=== PATIENT | female | born 1945 | race Caucasian/White ===

== ENCOUNTER → 2016-09-06 | Outpatient (CLI) | payer MEDICARE ==
--- NOTE | 2016-09-06 18:28 | PN ---
DATE OF SERVICE: 09/06/2016 This is a 71-year-old lady who has been followed in the sleep center for treatment of obstructive sleep apnea/hypopnea syndrome. Recently she had a polysomnogram and CPAP titration done, and I discussed results of the tests with her in detail. Patient at present is using her CPAP equipment with ( ) regimen of pressure between 5 and 20. Patient demonstrated good compliance with treatment 100% of the time. She is using the machine more than 4 hours per night. According to her, she sleeps better with the machine, has fewer awakenings from sleep, feels better during the day. Last night she woke up because she felt the pressure was too much for her; according to her, it was in the range of 14 to 15 cm of water. I checked the reading from the machine. It showed that 95th percentile of the pressure is 10.1 cm of water. Maximum pressure was 11.4 cm of water. With this regimen, apnea-hypopnea index for the last month was 4.1. Maximum leak was up to 27.7; 95th percentile is 18.6, which is in acceptable range. [place] Sleepiness Scale today is 3. MEDICATIONS: 1. Synthroid. 2. Clopidogrel. 3. Vitamin D. 4. Atorvastatin. 5. Sertraline. During physical exam, patient is in no distress. VITAL SIGNS: BP 134/65, HR 106, RR 16. Weight 225. Temperature 98.0. Oxygen saturations at room air 96%. HEENT: PERRLA, EOMI. Evaluation of oropharynx showed extremely low position of soft palate. NECK: Supple. No JVD. Thyroid is not palpable. LUNGS: Clear to percussion and to auscultation. Good air exchange. No wheezing or rhonchi. HEART: S1, S2 regular. No murmurs, gallops or rubs. ABDOMEN: Obese. EXTREMITIES: No clubbing or cyanosis. STRUCTURAL DESIGN ENGINEER: Awake, alert, and oriented x3. Cranial nerves 2 to 7 intact. There is no fasciculation or atrophy noted. No focal deficits observed. IMPRESSION: 1. Moderate obstructive sleep apnea/hypopnea syndrome. Apnea-hypopnea index 16.1 with oxygen desaturation to 88%, practically controlled with AutoPap. Patient demonstrated 100% compliance with treatment, benefitting from treatment. 2. Obesity. 3. Hyperlipidemia. 4. Hypothyroidism. 5. Depression. 6. Status post left ankle surgery. PLAN: 1. Continue treatment with CPAP every night. 2. Losing weight. 3. I adjusted regimen of ( ) pressure up to maximal pressure of 12. Thank you very much for allowing me to participate in the management your patient. Sincerely, Mickey Zaman MD, PhD, FAASM. Diplomat of [place] [employer], Sleep Medicine Board by [place] [employer], [place] [employer]
== END | disposition home or self-care (01) ==
LOC: SLEEP 14:13
PROVIDERS: ATTEND Internal Medicine
DX: G47.33 Obstructive sleep apnea (adult) (pediatric) (principal); Z79.899 Other long term (current) drug therapy; E66.9 Obesity, unspecified; E78.5 Hyperlipidemia, unspecified; E03.9 Hypothyroidism, unspecified; F32.9 Major depressive disorder, single episode, unspecified; Z98.890 Other specified postprocedural states

== ENCOUNTER → 2016-10-23 | Outpatient (CLI) | payer MEDICARE ==
[2016-10-23 13:47] LABS: Basophils % (A) 1 %; CH 30.9; CHCM 33.5; Eosinophils # (A) 0.2 k/uL (0-0.7); Eosinophils % (A) 4 %; HCT 38.3 % (34.0-46.0); HDW 2.65; HGB 12.8 gm/dL (11.4-16.0); Luc # (Auto) 0.11; Luc % (Auto) 2; Lymphocytes # (A) 1.6 k/uL (1.0-4.8); Lymphocytes % (A) 29 %; MCH 30.8 pg (25.0-35.0); MCHC 33.3 g/dL (31.0-37.0); MCV 92.5 fL (80.0-100.0); Mean Platelet Volume 6.7; Monocytes # (A) 0.2 k/uL (0-1.0); Monocytes % (A) 4 %; Neutrophils # (A) 3.2 k/uL (1.3-7.7); Neutrophils % (A) 59 %; RBC 4.14 m/uL (3.80-5.40); RDW 13.7 % (11.5-15.5); WBC 5.4 k/uL (3.8-10.6); WBC (Perox) 5.72
[2016-10-23 13:53] LABS: ALT 30 U/L (9-52); AST 25 U/L (14-36); Alkaline Phosphatase 61 U/L (38-126); Anion Gap 11 mmol/L; Blood Urea Nitrogen 19 mg/dL (7-17); Calcium 9.1 mg/dL (8.4-10.2); Carbon Dioxide 25 mmol/L (22-30); Chloride 107 mmol/L (98-107); Cholesterol 141 mg/dL (<200); Glucose 96 mg/dL (74-99); HDL Cholesterol 59 mg/dL (40-60); Non-African American GFR(MDRD) >60 (>60 ml/min/1.73 sqM); Potassium 4.5 mmol/L (3.5-5.1); Sodium 143 mmol/L (137-145); Total Bilirubin 0.8 mg/dL (0.2-1.3); Triglycerides 119 mg/dL (<150)
[2016-10-23 15:46] LABS: Hepatitis C Virus IgG Index 0.02
[2016-10-23 15:55] LABS: Hepatitis C Virus IgG Ab Negative (Negative)
== END | disposition home or self-care (01) ==
LOC: LABWHC1 12:22
PROVIDERS: ATTEND Family Medicine
DX: E03.9 Hypothyroidism, unspecified (principal); E78.5 Hyperlipidemia, unspecified; Z20.9 Contact with and (suspected) exposure to unspecified communicable disease
CPT/HCPCS: 36415; 80053; 80061; 84439; 84443; 84481; 85025; 86803

== ENCOUNTER → 2017-08-22 | Outpatient (CLI) | payer MEDICARE ==
--- NOTE | 2017-08-22 16:44 | PN ---
PROGRESS NOTE DATE OF SERVICE: 08/22/2017 72-year-old lady has been followed in Sleep Center for treatment of obstructive sleep apnea-hypopnea syndrome. The patient successfully continued to use her CPAP equipment every night for the whole night without significant problems related to the mask, pressure, humidification. [place] Sleepiness Scale today is 4. I checked CPAP unit. Pressure is 9 cm of water. Usage is 100% of the time more than 4 hours. Average usage is 6.4 hours. Leak 28 L/minutes which is borderline. Apnea-hypopnea index is 3.6, which is in normal range. MEDICATIONS: Synthroid, clopidogrel, Atorvastatin, Sertraline, aspirin, vitamin D3, cetirizine. PHYSICAL EXAM: Patient in no distress. BP 120/76, HR 93, RR 14, height 5 feet 2 inches, weight 227.8. The weight is up about 2.7 pounds, temp 99.3, oxygen saturation on room air 97%. Oropharynx extremely low position of soft palate. ABDOMEN: Obese. Extremities minimal 1+ ankle edema. Neck Supple, no JVD. Thyroid is not palpable. LUNGS Clear to percussion and to auscultation. Good air exchange. No wheezing or rhonchi. HEART: S1, S2 regular. No murmurs, gallops, or rubs. ABDOMEN: Obese. Soft and nontender. Bowel sounds are present. No organomegaly appreciated. [place]AIA[place] KURA TUARUA Awake, alert, and oriented X3. Cranial nerves 2 to 7 intact. There is no fasciculation or atrophy. noted. No focal deficits observed. IMPRESSION: 1. Obstructive sleep apnea-hypopnea syndrome. The patient demonstrated 100% compliance with treatment benefitting from treatment. 2. Obesity. 3. Hyperlipidemia. 4. Hypothyroidism. 5. History of depression. 6. Status post left ankle surgery. PLAN: 1. Patient will continue to use her CPAP equipment every night. 2. Prescription for all necessary CPAP supplies including mask, tube, filters. 3. Losing weight. 4. Sleep hygiene with regular time in bed for at least 8 hours. 5. No driving if feeling sleepiness. 6. Followup visit in 1 year earlier if patient has any problems. Thank you very much for allowing me to participate in management of your patient. Sincerely, Mickey Zaman MD, PhD, FAASM Diplomat of [place] [employer] [place] [employer] Leather Coater of [facility] [place] MMMARINA / NATHALY: [id number] /
== END | disposition home or self-care (01) ==
LOC: SLEEP 14:24
PROVIDERS: ATTEND Internal Medicine
DX: G47.33 Obstructive sleep apnea (adult) (pediatric) (principal); E66.9 Obesity, unspecified; E78.5 Hyperlipidemia, unspecified; E03.9 Hypothyroidism, unspecified; F32.9 Major depressive disorder, single episode, unspecified; Z99.89 Dependence on other enabling machines and devices; Z79.82 Long term (current) use of aspirin; Z79.899 Other long term (current) drug therapy; Z79.02 Long term (current) use of antithrombotics/antiplatelets; Z98.890 Other specified postprocedural states

== ENCOUNTER → 2018-10-09 | Outpatient (CLI) | payer MEDICARE ==
--- NOTE | 2018-10-09 16:43 | PN ---
PROGRESS NOTE DATE OF SERVICE: 10/09/2018 This patient is a 73-year-old lady who has been followed in Sleep Center for follow-up treatment of obstructive sleep apnea-hypopnea syndrome. The patient is successfully continuing to use her CPAP equipment every night for the whole night without significant problems related to mask fitting, pressure or humidification. No snoring with the machine. [place] Sleepiness Scale is 3, which is totally normal. I checked her CPAP unit. Usage is 100% of nights for more than 4 hours; average usage 7.0 hours. Pressure is 10.2 cm of water. Leak is 20 L/minute, which is borderline. The patient is using an AirFit P10 nasal pillow mask. Apnea-hypopnea index for the last month is 5.1, and this is about the same range for the last 6 months. MEDICATIONS: 1. Synthroid. 2. Clopidogrel. 3. Atorvastatin. 4. Sertraline. 5. Aspirin. 6. Vitamin D3. 7. Cetirizine. PHYSICAL EXAMINATION: GENERAL: A pleasant patient in no distress. VITAL SIGNS: BP 156/63, HR 91, RR 16, height 5 feet 1-1/4 inches, weight 233.2 pounds, which is 6 pounds more than during her previous visit. Temperature 98.1. Oxygen saturation at room air 95%. HEENT: PERRLA, EOMI. Evaluation of oropharynx showed tongue protrudes midline. Extremely low position of soft palate. NECK: Supple. No JVD. Thyroid is not palpable. LUNGS: Clear to percussion and to auscultation. Good air exchange. No wheezing or rhonchi. HEART: S1, S2 regular. No murmurs, gallops or rubs. ABDOMEN: Slightly obese. EXTREMITIES: No clubbing or cyanosis. GERMAN TUTOR: Awake, alert, and oriented X3. Cranial nerves 2 to 7 intact. There is no fasciculation or atrophy. noted. No focal deficits observed. IMPRESSION: 1. Obstructive sleep apnea-hypopnea syndrome. Patient demonstrated 100% compliance with treatment, benefitting from treatment. 2. Obesity. Weight is up by about 6 pounds compared to her previous visit. 3. Hypothyroidism. 4. Hyperlipidemia. 5. History of depression. 6. Status post left ankle surgery. PLAN: 1. Patient will continue to use CPAP equipment every night for the whole night with the same regimen as it is now, range of the pressure of 5 to 12 cm of water. 2. Losing weight. 3. Sleep hygiene with regular time in bed for at least 8 hours. 4. No driving if feeling any sleepiness. 5. We will maintain prescriptions for all necessary CPAP supplies, including mask, heated tube, filters. 6. Follow-up visit in one year or earlier if patient has any problems. Thank you very much for allowing me to participate in the management of your patient. Sincerely, Mickey Zaman MD, PhD, FAASM Diplomat of [place] [employer] [place] [employer] Event Services Manager of [facility] [place] MMODL / IJN: [id number] /
== END | disposition home or self-care (01) ==
LOC: SLEEP 15:13
PROVIDERS: ATTEND Internal Medicine
DX: G47.33 Obstructive sleep apnea (adult) (pediatric) (principal); E66.9 Obesity, unspecified; E78.5 Hyperlipidemia, unspecified; E03.9 Hypothyroidism, unspecified; F32.9 Major depressive disorder, single episode, unspecified; Z99.89 Dependence on other enabling machines and devices; Z79.02 Long term (current) use of antithrombotics/antiplatelets; Z79.82 Long term (current) use of aspirin; Z79.899 Other long term (current) drug therapy; Z98.890 Other specified postprocedural states

== ENCOUNTER → 2019-02-12 | Outpatient (CLI) | payer MEDICARE ==
--- NOTE | 2019-02-12 15:07 | BD ---
EXAMINATION TYPE: Axial Bone Density DATE OF EXAM: 02/12/2019 COMPARISON: 06.05.2005 CLINICAL HISTORY: 74 YR OLD FEMALE.....ICD-10 CODE: Z78.0 ASYMPTOMATIC MENOPAUSE Height: 61 Weight: 225 FRAX RISK QUESTIONS: NOTHING ADDITIONAL TO NOTE HERE RISK FACTORS HISTORY OF: ANKLE IN PAST UNDER 52 YRS OLD ONLY Diet low in dairy products/other sources of calcium: YES Postmenopausal woman: YES, AT AGE 50 Take estrogen and/or progesterone medications: IN THE PAST FOR 5 YRS Lost more than 2 inches in height since high school: YES MEDICATIONS: Prednisone or other steroids: INHALER FOR ALLERGY ONLY Thyroid Medications: YES, SYNTHROID FOR ABOUT 48 YRS Additional Medications: PLAVIX, VIT D, STATIN FOR CHOLESTEROL, ZOLOFT, AMBIEN PRN, REFLUX MEDS PRN, A SPIRIN, Additional History: 2 SMALL STROKES, EXAM MEASUREMENTS: Bone mineral densitometry was performed using the [employer] System. Bone mineral density as measured about the Lumbar spine is: ----- L1-L4(G/cm2): 1.533 T Score Values are as follows: ----- L1: 2.0 ----- L2: 5.6 ----- L3: 4.4 ----- L4: 0.6 ----- L1-L4: 2.9 Bone mineral density has: Increased 22.1% since study of: 06.05.2005 Bone mineral density about the R hip (g/cm2): 1.017 Bone mineral density about the L hip (g/cm2): 1.058 T Score values are as follows: -----R Neck: -0.2 -----L Neck: 1.2 -----R Total: 0.1 -----L Total: 0.4 Bone mineral density has: Decreased -3.8% since study of: 06.05.2005 FRAX%s: THERE IS A 6.7% CHANCE FOR A MAJOR OSTEOPOROTIC FX AND A 0.4% FOR HIP.....PROBABILITY FOR FX IN 10 YRS TIME IMPRESSION: Normal (Values between +1 and -1 indicate normal bone mass). Consider repeating this study in 5 year s or sooner if there is some new clinical indication. NOTE: T-SCORE=SD OF THE YOUNG ADULT MEAN.
--- NOTE | 2019-02-13 09:12 | MM ---
Reason for exam: screening (asymptomatic). Last mammogram was performed 5 years and 2 months ago. History: Patient is postmenopausal. Took estrogen for 5 years. Took progesterone for 5 years. Physical Findings: A clinical breast exam by your physician is recommended on an annual basis and results should be correlated with mammographic findings. MG 3D Screening Mammo W/Cad Bilateral CC and MLO view(s) were taken. Prior study comparison: December 24, 2013, bilateral MG screening mammo w CAD. June 02, 2009, bilateral digital screening mammogram. There are scattered fibroglandular densities. There is no discrete abnormality. No significant changes when compared with prior studies. ASSESSMENT: Negative, BI-RAD 1 RECOMMENDATION: Routine screening mammogram of both breasts in 1 year.
== END | disposition home or self-care (01) ==
LOC: RADMAMWWP 13:41
PROVIDERS: ATTEND Family Medicine
DX: Z12.31 Encounter for screening mammogram for malignant neoplasm of breast (principal); Z78.0 Asymptomatic menopausal state
CPT/HCPCS: 77063; 77067; 77080

== ENCOUNTER → 2020-06-03 | Outpatient (CLI) | payer MEDICARE | END | disposition home or self-care (01) | LOC: LABWHC1 13:07 | PROVIDERS: ATTEND Nurse Practitioner Family | DX: Z03.89 Encounter for observation for other suspected diseases and conditions ruled out (principal) | CPT/HCPCS: U0003; C9803 ==

== ENCOUNTER → 2021-04-05 | Outpatient (CLI) | payer MEDICARE ==
--- NOTE | 2021-04-05 15:45 | BD ---
EXAMINATION TYPE: Axial Bone Density DATE OF EXAM: 04/05/2021 COMPARISON: NONE CLINICAL HISTORY: Height: 5 FT 1 1/2 IN Weight: 225 FRAX RISK QUESTIONS: Alcohol (3 or more units per day): NO Family History (Parent hip fracture): NO Glucocorticoids (More than 3mos): NO (Ex: prednisone, prednisolone, methylprednisolone, dexamethasone, and hydrocortisone). History of Fracture in Adulthood: YES Secondary Osteoporosis: 1. Type 1 Diabetes: NO 2. Hyperthyroidism: NO 3. Menopause before 45: NO 4. Malnutrition: NO 5. Chronic liver disease: NO Rheumatoid Arthritis: NO Current Tobacco Use: NO RISK FACTORS HISTORY OF: Surgery to Spine/Hip(right/left)/Wrist (right/left): NO Family History of Osteoporosis: NO Active: NO Diet low in dairy products/other sources of calcium: NO Postmenopausal woman: AGE 50 Take estrogen and/or progesterone medications: TOOK HRT FOR 5 YEARS NO LONGER TAKES Lost more than 2 inches in height since high school: YES MEDICATIONS: Thyroid Medications: YES Which medication: SYNTHROID How Long: SINCE APPROX AGE 32 Additional Medications: SYNTHROID,ZOLOFT NEEDED, Additional History: EXAM MEASUREMENTS: Bone mineral densitometry was performed using the [employer] System. Bone mineral density as measured about the Lumbar spine is: ----- L1-L4(G/cm2): 1.428 T Score Values are as follows: ----- L2: 2.8 ----- L3: 3.6 ----- L4: 0.0 ----- L1-L4: 2.1 Bone mineral density has: DECREASED -8.3 % since study of: 2018 Bone mineral density about the R hip (g/cm2): 1.047 Bone mineral density about the L hip (g/cm2): 0.907 T Score values are as follows: -----R Neck: 0.1 -----L Neck: -0.9 -----R Total: 0.1 -----L Total: -0.4 Bone mineral density has: DECREASED -4.8 % since study of: 2018 IMPRESSION: Normal (Values between +1 and -1 indicate normal bone mass). Consider repeating this study in 5 year s or sooner if there is some new clinical indication. NOTE: T-SCORE=SD OF THE YOUNG ADULT MEAN.
--- NOTE | 2021-04-07 11:05 | MM ---
Reason for exam: screening (asymptomatic). Last mammogram was performed 2 years and 2 months ago. History: Patient is postmenopausal. Took estrogen for 5 years. Took progesterone for 5 years. Physical Findings: A clinical breast exam by your physician is recommended on an annual basis and results should be correlated with mammographic findings. MG Screening Mammo w CAD Bilateral CC and MLO view(s) were taken. CV view(s) were taken of the left breast. Prior study comparison: February 12, 2019, bilateral MG 3d screening mammo w/cad. December 24, 2013, bilateral MG screening mammo w CAD. The breast tissue is almost entirely fat. There is chronic nodularity in the left breast. No significant changes when compared with prior studies. ASSESSMENT: Negative, BI-RAD 1 RECOMMENDATION: Routine screening mammogram of both breasts in 1 year.
== END | disposition home or self-care (01) ==
LOC: RADMAMWWP 13:00
PROVIDERS: ATTEND Family Medicine
DX: Z12.31 Encounter for screening mammogram for malignant neoplasm of breast (principal); Z78.0 Asymptomatic menopausal state
CPT/HCPCS: 77067; 77080

== ENCOUNTER 2023-07-19 17:05 | Inpatient (IN) | payer MEDICARE ==
[2023-07-19] MEDS ORDERED: ACETAMINOPHEN TAB 500 MG TAB PO STA (17:30)
[2023-07-19] MEDS ORDERED: IBUPROFEN 800 MG TAB PO STA (17:30)
[2023-07-19] MEDS ORDERED: SODIUM CHLORIDE 0.9% 1,000 ML IV STA ×2 (17:30→21:22)
--- NOTE | 2023-07-19 17:30 | ED ---
Fever HPI - General Chief Complaint: Fall Stated Complaint: Fall Source: patient, EMS, RN notes reviewed, old records reviewed Mode of arrival: EMS Limitations: no limitations - History of Present Illness Initial Comments: This is a 78-year-old female to the ER today. Patient comes in for evaluation of fall patient believes she got severely weak last night was unable to complete an activity as she had a letter self the ground, or weakness persistent where she was unable to get up last night and family came looking for what they were unable to get ahold of her today. Patient has been feeling sick for a few days getting worse and notes to have fever on arrival to the emergency department MD Complaint: fever, malaise, weakness, other ( had a fall in late on her ground for 24 hours) -: days(s) Temperature Source: subjective Associated Symptoms: denies other symptoms Treatments Prior to Arrival: none - Related Data Home Medications Medication Instructions Recorded Confirmed Multivitamin [Multivitamins Adult 1 tab PO DAILY 07/19/23 07/19/23 Gummies] Previous Rx's Medication Instructions Recorded Acetaminophen Tab [Tylenol] 325 mg PO Q6HR PRN tab 07/24/23 Ascorbic Acid [Vitamin C] 1,000 mg PO DAILY #60 tab 07/24/23 Cholecalciferol [Vitamin D3 (25 50 mcg PO DAILY #30 tab 07/24/23 Mcg = 1000 Iu)] Levothyroxine Sodium [Synthroid] 100 mcg PO DAILY@0630 tab 07/24/23 Zinc Sulfate [Orazinc] 220 mg PO DAILY #30 cap 07/24/23 Allergies Allergy/AdvReac Type Severity Reaction Status Date / Time banana Allergy Swelling Verified 07/19/23 20:13 latex Allergy Rash/Hives Verified 07/19/23 20:13 Penicillins Allergy Rash/Hives Verified 07/19/23 20:13 tree nut Allergy Swelling Verified 07/19/23 20:13 Review of Systems ROS Statement: Those systems with pertinent positive or pertinent negative responses have been documented in the HPI. ROS Other: All systems not noted in ROS Statement are negative. Past Medical History Past Medical History: GERD/Reflux, Hyperlipidemia, Thyroid Disorder Additional Past Medical History / Comment(s): IBS, heart murmur History of Any Multi-Drug Resistant Organisms: None Reported Past Surgical History: Orthopedic Surgery Additional Past Surgical History / Comment(s): L and R cataract removal, Left ankle ORIF Past Anesthesia/Blood Transfusion Reactions: Motion Sickness Past Psychological History: No Psychological Hx Reported Smoking Status: Never smoker Past Alcohol Use History: Rare Past Drug Use History: None Reported - Past Family History Father Family Medical History: CVA/TIA Mother Family Medical History: Cancer, CVA/TIA Additional Family Medical History / Comment(s): colon cancer. General Exam General appearance: alert, in no apparent distress, anxious, lethargic Head exam: Present: atraumatic, normocephalic, normal inspection Eye exam: Present: normal appearance, PERRL, EOMI. Absent: scleral icterus, conjunctival injection, periorbital swelling ENT exam: Present: normal exam, mucous membranes dry, mucous membranes moist Neck exam: Present: normal inspection. Absent: tenderness, meningismus, lymphadenopathy Respiratory exam: Present: normal lung sounds bilaterally. Absent: respiratory distress, wheezes, rales, rhonchi, stridor Cardiovascular Exam: Present: normal rhythm, tachycardia, normal heart sounds. Absent: systolic murmur, diastolic murmur, rubs, gallop, clicks GI/Abdominal exam: Present: soft, normal bowel sounds. Absent: distended, tenderness, guarding, rebound, rigid Extremities exam: Present: normal inspection, full ROM, normal capillary refill. Absent: tenderness, pedal edema, joint swelling, calf tenderness Back exam: Present: normal inspection Neurological exam: Present: alert, oriented X3, CN II-XII intact Psychiatric exam: Present: normal affect, normal mood Skin exam: Present: warm, dry, intact, normal color. Absent: rash Course Vital Signs 07/19/23 07/19/23 07/19/23 17:07 18:48 21:01 Temperature 100.6 F H 100.8 F H 99.4 F Pulse Rate 110 H 99 97 Pulse Rate [ Left] Respiratory 18 18 18 Rate Blood Pressure 128/68 107/50 116/58 Blood Pressure [Left Arm] O2 Sat by Pulse 97 97 94 L Oximetry 07/20/23 07/20/23 07/20/23 02:00 04:00 05:00 Temperature Pulse Rate 58 L 76 87 Pulse Rate [ Left] Respiratory 16 17 19 Rate Blood Pressure 98/47 102/49 107/57 Blood Pressure [Left Arm] O2 Sat by Pulse 94 L 94 L 95 Oximetry 07/20/23 07/20/23 07/20/23 07:30 11:50 16:28 Temperature 98.9 F 100.5 F H 98.5 F Pulse Rate 95 100 91 Pulse Rate [ Left] Respiratory 18 20 18 Rate Blood Pressure 116/51 119/77 94/41 Blood Pressure [Left Arm] O2 Sat by Pulse 95 95 98 Oximetry 07/20/23 07/20/23 18:13 18:45 Temperature 99.1 F 99.9 F H Pulse Rate 92 Pulse Rate [ 69 Left] Respiratory 18 18 Rate Blood Pressure 91/62 Blood Pressure 104/66 [Left Arm] O2 Sat by Pulse 97 95 Oximetry - Reevaluation(s) Reevaluation #1: medical record is reviewed Reevaluation #2: patient has no improvement in symptoms Reevaluation #3: patient is informed of symptoms and questions answered Reevaluation #4: Was pt. sent in by a medical professional or institution (, PA, CASE BRIEFER, urgent care, hospital, or senior care...) When possible be specific @ -no Did you speak to anyone other than the patient for history (EMS, parent, family, police, friend...)? What history was obtained from this source @ -no Did you review nursing and triage notes (agree or disagree)? Why? @ -agree Are old charts reviewed (outside hosp., previous admission, EMS record, old EKG, old radiological studies, urgent care reports/EKG's, senior care records)? Report findings @ -yes Differential Diagnosis (chest pain, altered mental status, abdominal pain women, abdominal pain men, vaginal bleeding, weakness, fever, dyspnea, syncope, headache, dizziness, GI bleed, back pain, seizure, CVA, palpatations, mental health, musculoskeletal)? @ -prior EKG interpreted by me (3pts min.). @ -yes X-rays interpreted by me (1pt min.). @ -yes negative for acute disaease CT interpreted by me (1pt min.). @ -no U/S interpreted by me (1pt. min.). @ -no What testing was considered but not performed or refused? (CT, X-rays, U/S, labs)? Why? @ -none What meds were considered but not given or refused? Why? @ -none Did you discuss the management of the patient with other professionals (professionals i.e. , PA, CASE BRIEFER, lab, RT, psych nurse, social sciences professor, quarter folder, teacher, restoration officer, piano case and bench assembler)? Give summary @ -no Was smoking cessation discussed for >3mins.? @ -no Was critical care preformed (if so, how long)? @ -no Were there social determinants of health that impacted care today? How? (Homelessness, low income, unemployed, alcoholism, drug addiction, transportation, low edu. Level, literacy, decrease access to med. care, [place] [facility], rehab)? @ -none Was there de-escalation of care discussed even if they declined (Discuss DNR or withdrawal of care, Hospice)? DNR status @ -no What co-morbidities impacted this encounter? (DM, HTN, Smoking, COPD, CAD, Cancer, CVA, ARF, Chemo, Hep., AIDS, mental health diagnosis, sleep apnea, morbid obesity)? @ -none Was patient admitted / discharged? Hospital course, mention meds given and route, prescriptions, significant lab abnormalities, going to OR and other pertinent info. @ - 78 female to the emergency department was severe weakness laid on the floor all night, does have expected rhabdomyolysis CK greater than 25,000, patient will admit for resuscitation and hydration monitoring of bilateral nose and further investigation into cause of debility. Patient is no acute fracture from fall Admitted Undiagnosed new problem with uncertain prognosis? @ -no Drug Therapy requiring intensive monitoring for toxicity (Heparin, Nitro, Insulin, Cardizem)? @ -no Were any procedures done? @ -no Diagnosis/symptom? @ -Fever,Weak,Rhabdomyolysis,COVID Acute, or Chronic, or Acute on Chronic? @ -Acute Uncomplicated (without systemic symptoms) or Complicated (systemic symptoms)? @ -Complicated Side effects of treatment? @ -no Exacerbation, Progression, or Severe Exacerbation? @ -exacerbation Poses a threat to life or bodily function? How? (Chest pain, [place], [place], pneumonia, PE, COPD, DKA, ARF, appy, cholecystitis, CVA, Diverticulitis, Homicidal, Suicidal, threat to staff... and all critical care pts) @ -yes extremes of age Reevaluation #5: Differential Fever: Pneumonia, viral URI, endocarditis, myocarditis, pericarditis, otitis, sinusit is, peritonsillar Abscess, retropharyngeal Abscess, epiglottitis, peritonitis, appendicitis, Gladis cystitis, diverticulitis, hepatitis, colitis, UTI, PID, TOA, pyelonephritis, prostatitis, epididymitis, meningitis, encephalitis, pulmonary embolism, CVA, thyroid storm, pancreatitis, adrenal crisis, cavernous sinus thrombosis, this is not meant to be an all-inclusive list. - Consultations Consultation #1: spoke w admitting who agrees to admit these patients Medical Decision Making - Medical Decision Making 78 female to the emergency department was severe weakness laid on the floor all night, does have expected rhabdomyolysis CK greater than 25,000, patient will admit for resuscitation and hydration monitoring of bilateral nose and further investigation into cause of debility. Patient is no acute fracture from fall - Lab Data Result diagrams: 07/22/23 03:45 07/24/23 03:38 Lab Results 07/19/23 07/19/23 07/19/23 Range/Units 17:51 17:51 17:51 WBC 8.2 (3.8-10.6) k/uL RBC 4.31 (3.80-5.40) m/uL Hgb 13.9 (11.4-16.0) gm/dL Hct 40.9 (34.0-46.0) % MCV 94.8 (80.0-100.0) fL MCH 32.2 (25.0-35.0) pg MCHC 33.9 (31.0-37.0) g/dL RDW 12.7 (11.5-15.5) % Plt Count 241 (150-450) k/uL MPV 7.2 Neutrophils % 85 % Lymphocytes % 9 % Monocytes % 4 % Eosinophils % 0 % Basophils % 1 % Neutrophils # 7.0 (1.3-7.7) k/uL Lymphocytes # 0.7 L (1.0-4.8) k/uL Monocytes # 0.3 (0-1.0) k/uL Eosinophils # 0.0 (0-0.7) k/uL Basophils # 0.0 (0-0.2) k/uL PT 12.4 (10.0-12.5) sec INR 1.2 H (<1.2) APTT 23.8 (22.0-30.0) sec Sodium (137-145) mmol/L Potassium (3.5-5.1) mmol/L Chloride (98-107) mmol/L Carbon Dioxide (22-30) mmol/L Anion Gap mmol/L BUN (7-17) mg/dL Creatinine (0.52-1.04) mg/dL Est GFR (CKD-EPI)AfAm (>60 ml/min/1.73 sqM) Est GFR (CKD-EPI)NonAf (>60 ml/min/1.73 sqM) Glucose (74-99) mg/dL Plasma Lactic Acid Tam (0.7-2.0) mmol/L Calcium (8.4-10.2) mg/dL Phosphorus (2.5-4.5) mg/dL Magnesium (1.6-2.3) mg/dL Total Bilirubin (0.2-1.3) mg/dL AST (14-36) U/L ALT (4-34) U/L Alkaline Phosphatase (38-126) U/L Creatine Kinase (30-135) U/L Troponin I (0.000-0.034) ng/mL NT-Pro-B Natriuret Pep pg/mL Total Protein (6.3-8.2) g/dL Albumin (3.5-5.0) g/dL Urine Color Light Red Urine Appearance Turbid H (Clear) Urine pH 5.5 (5.0-8.0) Ur Specific [place] 1.028 (1.001-1.035) Urine Protein 2+ H (Negative) Urine Glucose (UA) Negative (Negative) Urine Ketones 1+ H (Negative) Urine Blood Large H (Negative) Urine Nitrite Negative (Negative) Urine Bilirubin Negative (Negative) Urine Urobilinogen <2.0 (<2.0) mg/dL Ur Leukocyte Esterase Negative (Negative) Urine RBC 2 (0-5) /hpf Urine WBC 2 (0-5) /hpf Ur Squamous Epith Cells 2 (0-4) /hpf Amorphous Sediment Few H (None) /hpf Urine Mucus Moderate H (None) /hpf Influenza Type A (PCR) (Not Detectd) Influenza Type B (PCR) (Not Detectd) RSV (PCR) (Not Detectd) SARS-CoV-2 (PCR) (Not Detectd) 07/19/23 07/19/23 07/19/23 Range/Units 17:51 17:51 18:56 WBC (3.8-10.6) k/uL RBC (3.80-5.40) m/uL Hgb (11.4-16.0) gm/dL Hct (34.0-46.0) % MCV (80.0-100.0) fL MCH (25.0-35.0) pg MCHC (31.0-37.0) g/dL RDW (11.5-15.5) % Plt Count (150-450) k/uL MPV Neutrophils % % Lymphocytes % % Monocytes % % Eosinophils % % Basophils % % Neutrophils # (1.3-7.7) k/uL Lymphocytes # (1.0-4.8) k/uL Monocytes # (0-1.0) k/uL Eosinophils # (0-0.7) k/uL Basophils # (0-0.2) k/uL PT (10.0-12.5) sec INR (<1.2) APTT (22.0-30.0) sec Sodium 136 L (137-145) mmol/L Potassium 3.9 (3.5-5.1) mmol/L Chloride 103 (98-107) mmol/L Carbon Dioxide 23 (22-30) mmol/L Anion Gap 10 mmol/L BUN 25 H (7-17) mg/dL Creatinine 0.73 (0.52-1.04) mg/dL Est GFR (CKD-EPI)AfAm >90 (>60 ml/min/1.73 sqM) Est GFR (CKD-EPI)NonAf 81 (>60 ml/min/1.73 sqM) Glucose 111 H (74-99) mg/dL Plasma Lactic Acid Tam 1.4 (0.7-2.0) mmol/L Calcium 8.5 (8.4-10.2) mg/dL Phosphorus 3.6 (2.5-4.5) mg/dL Magnesium 1.9 (1.6-2.3) mg/dL Total Bilirubin 1.0 (0.2-1.3) mg/dL AST 375 H (14-36) U/L ALT 102 H (4-34) U/L Alkaline Phosphatase 56 (38-126) U/L Creatine Kinase 23204 H* (30-135) U/L Troponin I 0.035 H* (0.000-0.034) ng/mL NT-Pro-B Natriuret Pep 681 pg/mL Total Protein 6.1 L (6.3-8.2) g/dL Albumin 3.4 L (3.5-5.0) g/dL Urine Color Urine Appearance (Clear) Urine pH (5.0-8.0) Ur Specific [place] (1.001-1.035) Urine Protein (Negative) Urine Glucose (UA) (Negative) Urine Ketones (Negative) Urine Blood (Negative) Urine Nitrite (Negative) Urine Bilirubin (Negative) Urine Urobilinogen (<2.0) mg/dL Ur Leukocyte Esterase (Negative) Urine RBC (0-5) /hpf Urine WBC (0-5) /hpf Ur Squamous Epith Cells (0-4) /hpf Amorphous Sediment (None) /hpf Urine Mucus (None) /hpf Influenza Type A (PCR) (Not Detectd) Influenza Type B (PCR) (Not Detectd) RSV (PCR) (Not Detectd) SARS-CoV-2 (PCR) (Not Detectd) 07/19/23 Range/Units 21:17 WBC (3.8-10.6) k/uL RBC (3.80-5.40) m/uL Hgb (11.4-16.0) gm/dL Hct (34.0-46.0) % MCV (80.0-100.0) fL MCH (25.0-35.0) pg MCHC (31.0-37.0) g/dL RDW (11.5-15.5) % Plt Count (150-450) k/uL MPV Neutrophils % % Lymphocytes % % Monocytes % % Eosinophils % % Basophils % % Neutrophils # (1.3-7.7) k/uL Lymphocytes # (1.0-4.8) k/uL Monocytes # (0-1.0) k/uL Eosinophils # (0-0.7) k/uL Basophils # (0-0.2) k/uL PT (10.0-12.5) sec INR (<1.2) APTT (22.0-30.0) sec Sodium (137-145) mmol/L Potassium (3.5-5.1) mmol/L Chloride (98-107) mmol/L Carbon Dioxide (22-30) mmol/L Anion Gap mmol/L BUN (7-17) mg/dL Creatinine (0.52-1.04) mg/dL Est GFR (CKD-EPI)AfAm (>60 ml/min/1.73 sqM) Est GFR (CKD-EPI)NonAf (>60 ml/min/1.73 sqM) Glucose (74-99) mg/dL Plasma Lactic Acid Tam (0.7-2.0) mmol/L Calcium (8.4-10.2) mg/dL Phosphorus (2.5-4.5) mg/dL Magnesium (1.6-2.3) mg/dL Total Bilirubin (0.2-1.3) mg/dL AST (14-36) U/L ALT (4-34) U/L Alkaline Phosphatase (38-126) U/L Creatine Kinase (30-135) U/L Troponin I (0.000-0.034) ng/mL NT-Pro-B Natriuret Pep pg/mL Total Protein (6.3-8.2) g/dL Albumin (3.5-5.0) g/dL Urine Color Urine Appearance (Clear) Urine pH (5.0-8.0) Ur Specific [place] (1.001-1.035) Urine Protein (Negative) Urine Glucose (UA) (Negative) Urine Ketones (Negative) Urine Blood (Negative) Urine Nitrite (Negative) Urine Bilirubin (Negative) Urine Urobilinogen (<2.0) mg/dL Ur Leukocyte Esterase (Negative) Urine RBC (0-5) /hpf Urine WBC (0-5) /hpf Ur Squamous Epith Cells (0-4) /hpf Amorphous Sediment (None) /hpf Urine Mucus (None) /hpf Influenza Type A (PCR) Not Detected (Not Detectd) Influenza Type B (PCR) Not Detected (Not Detectd) RSV (PCR) Not Detected (Not Detectd) SARS-CoV-2 (PCR) Detected A (Not Detectd) - Radiology Data Radiology results: report reviewed (Chest x-ray pelvis negative for traumatic injury), image reviewed Disposition Clinical Impression: Fall, Weakness, Rhabdomyolysis, Fever, Coronavirus infection, Pre-syncope Disposition: ADMITTED IP TO THIS [facility] Condition: Serious Is patient prescribed a controlled substance at d/c from ED?: No Time of Disposition: 21:30
[2023-07-19 18:27] LABS: Basophils % (A) 1 %; Eosinophils % (A) 0 %; HCT 40.9 % (34.0-46.0); HGB 13.9 gm/dL (11.4-16.0); Lymphocytes # (A) 0.7 k/uL (1.0-4.8); Lymphocytes % (A) 9 %; MCH 32.2 pg (25.0-35.0); MCHC 33.9 g/dL (31.0-37.0); MCV 94.8 fL (80.0-100.0); Mean Platelet Volume 7.2; Monocytes # (A) 0.3 k/uL (0-1.0); Monocytes % (A) 4 %; Neutrophils % (A) 85 %; Platelet Count 241 k/uL (150-450); RBC 4.31 m/uL (3.80-5.40); RDW 12.7 % (11.5-15.5); WBC 8.2 k/uL (3.8-10.6)
[2023-07-19 18:43] LABS: INR 1.2 (<1.2); Partial Thromboplastin Time 23.8 sec (22.0-30.0); Prothrombin Time 12.4 sec (10.0-12.5)
[2023-07-19 19:14] LABS: Amorphous Sediment,Urine Few /hpf; Appearance,Urine Turbid (Clear); Bilirubin,Urine Negative (Negative); Blood,Urine Large (Negative); Color,Urine Light Red; Glucose,Urine (UA) Negative (Negative); Ketones,Urine 1+ (Negative); Leukocyte Esterase,Urine Negative (Negative); Mucus,Urine Moderate /hpf; Nitrite,Urine Negative (Negative); PH, Urine 5.5 (5.0-8.0); Protein,Urine 2+ (Negative); RBC,Urine 2 /hpf (0-5); Specific Gravity,Urine 1.028 (1.001-1.035); Squamous Epithelial Cell,Urine 2 /hpf (0-4); Urobilinogen,Urine <2.0 mg/dL (<2.0); WBC,Urine 2 /hpf (0-5)
[2023-07-19 19:23] LABS: ALT 102 U/L (4-34); AST 375 U/L (14-36); African American GFR (CKD) >90 (>60 ml/min/1.73 sqM); Albumin 3.4 g/dL (3.5-5.0); Alkaline Phosphatase 56 U/L (38-126); Anion Gap 10 mmol/L; Blood Urea Nitrogen 25 mg/dL (7-17); Calcium 8.5 mg/dL (8.4-10.2); Carbon Dioxide 23 mmol/L (22-30); Chloride 103 mmol/L (98-107); Glucose 111 mg/dL (74-99); Magnesium 1.9 mg/dL (1.6-2.3); Non-African American GFR(CKD) 81 (>60 ml/min/1.73 sqM); Phosphorus 3.6 mg/dL (2.5-4.5); Potassium 3.9 mmol/L (3.5-5.1); Sodium 136 mmol/L (137-145); Total Protein 6.1 g/dL (6.3-8.2)
--- NOTE | 2023-07-19 19:30 | XR ---
EXAMINATION TYPE: XR chest 1V DATE OF EXAM: 07/19/2023 7:12 PM CLINICAL INDICATION:Female, 78 years old with history of fall; COMPARISON: Chest radiographs from 11/25/2014 TECHNIQUE: XR chest 1V Frontal view of the chest. FINDINGS: Lungs/Pleura: There is no evidence of pleural effusion, focal consolidation, or pneumothorax. Pulmonary vascularity: Unremarkable. Heart/mediastinum: Cardiomediastinal silhouette is unremarkable. Musculoskeletal: No acute osseous pathology. IMPRESSION: No acute cardiopulmonary disease/process.
--- NOTE | 2023-07-19 19:30 | XR ---
EXAMINATION TYPE: XR pelvis AP view DATE OF EXAM: 07/19/2023 7:12 PM CLINICAL INDICATION:Female, 78 years old with history of fall; COMPARISON: None TECHNIQUE: The pelvis was examined in a single projection. FINDINGS: There is no evidence of fracture or dislocation. There is no soft tissue abnormality. No a bnormal calcifications are present. The spine appears intact. The hips appear intact. No significant degeneration. Severe degeneration changes with osteophyte formation and joint space tearing. IMPRESSION: 1. No acute osseous pathology. 2. Severe bilateral hip osteoarthrosis.
[2023-07-19 19:32] LABS: NT-Pro-B-Type Natriuretic Pept 681 pg/mL
[2023-07-19 20:49] LABS: Creatine Kinase 24936 U/L (30-135)
[2023-07-19] MEDS ORDERED: SODIUM CHLORIDE 0.9% 500 ML 500 ML IV STA (21:22)
[2023-07-19] MEDS ORDERED: ONDANSETRON 4 MG/2 ML VIAL IVP PRN (21:27)
[2023-07-19] MEDS ORDERED: NALOXONE 0.4 MG/ML 1 ML VIAL IV PRN (21:27)
[2023-07-19] MEDS ORDERED: MORPHINE SULFATE 4 MG/ML SYRINGE IV PRN (21:27)
[2023-07-19] MEDS: SODIUM CHLORIDE 0.9% 1,000 ML IV SCH (22:57)
[2023-07-20] MEDS: SODIUM CHLORIDE 0.9% 1,000 ML IV SCH ×3 (05:56→16:41)
[2023-07-20] MEDS ORDERED: ACETAMINOPHEN TAB 325 MG TAB PO PRN (06:34)
--- NOTE | 2023-07-20 07:39 | P.HPIM ---
History of Present Illness This is a pleasant 78 years old female with past medical history of hyperlipidemia, irritable bowel syndrome that she follows up with Dr. Torres She presents with generalized weakness and fall at home, patient spent her [place] with her son who has Covid, after that she started to have low appetite and generalized weakness, she is also having some dry cough and occasional phlegm but no dyspnea or chest pain, no diarrhea vomiting or abdominal pain and no urinary symptoms. No headache dizziness weakness or numbness however night she fell on the floor without losing consciousness and she felt so weak she could not get up so she stayed on the floor tomorrow morning also she could not get up and evaluated to her family start checking on her and the daughter about 2-3 pm, they noticed her over the window moving so they called ems who brought into the house and brought her to the hospital. Currently lying in bed feels generally weak but denies any other specific complaints Patient denies smoking alcohol or illicit drugs Hemodynamically stable, she had low-grade fever of 100.8, blood pressure on the low side 107/57 Labs checked she has unremarkable CBC, WBC is 8.2, INR is unremarkable, BMP is unremarkable Liver enzymes elevated AST 375 and ALT 102. Creatinine kinase is elevated to 4936 Troponin is elevated 0.035 Covid test came back positive Urine analysis looks concentrated sample EKG sinus tachycardia and [address]-T changes and QTC 382 Chest x-ray showed no acute process Pelvic x-ray showed no acute fracture but bilateral hip osteoarthrosis Patient states that she feels fine other than generally weak since she wants to go home. Patient was started on normal saline 1:30 milliliters per hour and also she received 2.5 L in the emergency room. Review of Systems Review of systems CONSTITUTIONAL: No fever, no malaise, no fatigue. HEENT: No recent visual problems or hearing problems. Denied any sore throat. CARDIOVASCULAR: No orthopnea, PND, no palpitations, no syncope. PULMONARY: No shortness of breath, no cough, no hemoptysis. GASTROINTESTINAL: No diarrhea, no nausea, no vomiting, no abdominal pain. Normoactive bowel sounds. NEUROLOGICAL: No headaches, no weakness, no numbness. HEMATOLOGICAL: Denies any bleeding or petechiae. GENITOURINARY: Denies any burning micturition, frequency, or urgency. MUSCULOSKELETAL/RHEUMATOLOGICAL: Denies any joint pain, swelling, or any muscle pain. ENDOCRINE: Denies any polyuria or polydipsia. Past Medical History Past Medical History: GERD/Reflux, Hyperlipidemia, Thyroid Disorder Additional Past Medical History / Comment(s): IBS, heart murmur History of Any Multi-Drug Resistant Organisms: None Reported Past Surgical History: Orthopedic Surgery Additional Past Surgical History / Comment(s): L and R cataract removal, Left ankle ORIF Past Anesthesia/Blood Transfusion Reactions: Motion Sickness Past Psychological History: No Psychological Hx Reported Smoking Status: Never smoker Past Alcohol Use History: Rare Past Drug Use History: None Reported - Past Family History Father Family Medical History: CVA/TIA Mother Family Medical History: Cancer, CVA/TIA Additional Family Medical History / Comment(s): colon cancer. Medications and Allergies Home Medications Medication Instructions Recorded Confirmed Type Multivitamin [Multivitamins Adult 1 tab PO DAILY 07/19/23 07/19/23 History Gummies] Allergies Allergy/AdvReac Type Severity Reaction Status Date / Time banana Allergy Swelling Verified 07/19/23 20:13 latex Allergy Rash/Hives Verified 07/19/23 20:13 Penicillins Allergy Rash/Hives Verified 07/19/23 20:13 tree nut Allergy Swelling Verified 07/19/23 20:13 Physical Exam Vitals: Vital Signs Temp Pulse Resp BP Pulse Ox 07/20/23 05:00 87 19 107/57 95 07/20/23 04:00 76 17 102/49 94 L 07/20/23 02:00 58 L 16 98/47 94 L 07/19/23 21:01 99.4 F 97 18 116/58 94 L 07/19/23 18:48 100.8 F H 99 18 107/50 97 07/19/23 17:07 100.6 F H 110 H 18 128/68 97 Intake and Output 07/19/23 07/19/23 07/20/23 14:59 22:59 06:59 Output Total 650 Balance -650 Output: Urine 650 Other: Weight 102.058 kg -GENERAL: The patient is alert and oriented x3, not in any acute distress. Obese. Generally weak HEENT: Pupils are round and equally reacting to light. EOMI. No scleral icterus. No conjunctival pallor. Normocephalic, atraumatic. No pharyngeal erythema. No thyromegaly. CARDIOVASCULAR: S1 and S2 present. No murmurs, rubs, or gallops. PULMONARY: Chest is clear to auscultation, no wheezing , no crackles. ABDOMEN: Soft, nontender, nondistended, normoactive bowel sounds. No palpable organomegaly. MUSCULOSKELETAL: No joint swelling or deformity. EXTREMITIES: No cyanosis, clubbing, or pedal edema. NEUROLOGICAL: Gross neurological examination did not reveal any focal deficits. SKIN: No rashes. no petechiae. Results CBC & Chem 7: 07/19/23 17:51 07/19/23 18:56 Labs: Abnormal Lab Results - Last 24 Hours (Table) 07/19/23 07/19/23 07/19/23 Range/Units 17:51 17:51 17:51 Lymphocytes # 0.7 L (1.0-4.8) k/uL INR 1.2 H (<1.2) Sodium (137-145) mmol/L BUN (7-17) mg/dL Glucose (74-99) mg/dL AST (14-36) U/L ALT (4-34) U/L Creatine Kinase (30-135) U/L Troponin I (0.000-0.034) ng/mL Total Protein (6.3-8.2) g/dL Albumin (3.5-5.0) g/dL Urine Appearance Turbid H (Clear) Urine Protein 2+ H (Negative) Urine Ketones 1+ H (Negative) Urine Blood Large H (Negative) Amorphous Sediment Few H (None) /hpf Urine Mucus Moderate H (None) /hpf SARS-CoV-2 (PCR) (Not Detectd) 07/19/23 07/19/23 07/19/23 Range/Units 17:51 18:56 21:17 Lymphocytes # (1.0-4.8) k/uL INR (<1.2) Sodium 136 L (137-145) mmol/L BUN 25 H (7-17) mg/dL Glucose 111 H (74-99) mg/dL AST 375 H (14-36) U/L ALT 102 H (4-34) U/L Creatine Kinase 99913 H* (30-135) U/L Troponin I 0.035 H* (0.000-0.034) ng/mL Total Protein 6.1 L (6.3-8.2) g/dL Albumin 3.4 L (3.5-5.0) g/dL Urine Appearance (Clear) Urine Protein (Negative) Urine Ketones (Negative) Urine Blood (Negative) Amorphous Sediment (None) /hpf Urine Mucus (None) /hpf SARS-CoV-2 (PCR) Detected A (Not Detectd) Assessment and Plan Assessment: Acute Covid infection without pneumonia or hypoxia Generalized weakness secondary to above with fall at home without syncope Rhabdomyolysis Elevated troponin most likely secondary to her systemic illness, Mild transaminitis Obesity with BMI of 38.6 Plan: No need for steroids or remdesivir Continue with vitamin C, D and zinc check TSH and vitamin B12 and check inflammatory markers Continue with IV hydration Monitor creatinine Cardiology and nephrology consult Labs and medication were reviewed.. Continue same treatment. Continue with symptomatic treatment. Resume home medication. Monitor labs and vitals. DVT and GI prophylaxis. Further recommendations as per clinical course of the patient DVT prophylaxis: Subcutaneous Lovenox GI Prophylaxis: Pepcid PT/OT: Pending Prognosis is guarded
[2023-07-20 08:49] LABS: Basophils % (A) 1 %; Eosinophils # (A) 0.1 k/uL (0-0.7); Eosinophils % (A) 1 %; HCT 37.1 % (34.0-46.0); HGB 12.2 gm/dL (11.4-16.0); Lymphocytes # (A) 0.7 k/uL (1.0-4.8); Lymphocytes % (A) 14 %; MCH 32.2 pg (25.0-35.0); MCHC 32.9 g/dL (31.0-37.0); MCV 97.8 fL (80.0-100.0); Mean Platelet Volume 7.9; Monocytes # (A) 0.2 k/uL (0-1.0); Monocytes % (A) 4 %; Neutrophils % (A) 79 %; Platelet Count 195 k/uL (150-450); RDW 12.8 % (11.5-15.5); WBC 5.1 k/uL (3.8-10.6)
[2023-07-20] MEDS ORDERED: ENOXAPARIN 30 MG/0.3 ML SYRINGE SQ SCH (09:00)
[2023-07-20 09:03] LABS: ALT 103 U/L (4-34); AST 356 U/L (14-36); African American GFR (CKD) >90 (>60 ml/min/1.73 sqM); Albumin 2.9 g/dL (3.5-5.0); Alkaline Phosphatase 52 U/L (38-126); Anion Gap 6 mmol/L; Blood Urea Nitrogen 21 mg/dL (7-17); Calcium 7.9 mg/dL (8.4-10.2); Carbon Dioxide 23 mmol/L (22-30); Chloride 110 mmol/L (98-107); Glucose 85 mg/dL (74-99); Magnesium 1.9 mg/dL (1.6-2.3); Non-African American GFR(CKD) 84 (>60 ml/min/1.73 sqM); Phosphorus 3.4 mg/dL (2.5-4.5); Potassium 3.7 mmol/L (3.5-5.1); Sodium 139 mmol/L (137-145); Total Bilirubin 0.6 mg/dL (0.2-1.3); Total Protein 5.4 g/dL (6.3-8.2)
[2023-07-20 09:04] LABS: LDH 783 U/L (120-246)
[2023-07-20] MEDS: ASCORBIC ACID 500 MG TAB PO SCH (10:00)
[2023-07-20] MEDS: CHOLECALCIFEROL 25 MCG (1000 IU) TABLET PO SCH (10:00)
[2023-07-20] MEDS: FAMOTIDINE 20 MG TAB PO SCH ×2 (10:00→21:26)
[2023-07-20] MEDS: ZINC SULFATE 220 MG CAP PO SCH (10:00)
[2023-07-20 10:08] LABS: C Reactive Protein 14.3 mg/dL (<1.0)
[2023-07-20 10:32] LABS: Creatine Kinase 18830 U/L (30-135)
--- NOTE | 2023-07-20 11:31 | P.NPCON ---
History of Present Illness - Reason for Consult acute renal failure - History of Present Illness Reason for consultation: Rhabdomyolysis History of present illness: Patient is a 78-year-old female seen in renal consultation for rhabdomyolysis. Patient states she tripped and fell and was unable to get up. Patient states she was down for about 24 hours before someone came and helped her get up. Patient's CK level on admission was 24,936 and is 18,830 today. She did receive 1.5 L of normal saline bolus in the ER and is currently maintained on normal saline at 1 30 mL an hour. Patient denies any personal or family history of kidney disease. GFR is at baseline. No vomiting or diarrhea. No chest pain or shortness of breath. She does admit to taking statin for cholesterol at home. Denies regular use of nonsteroidals. No history of diabetes or heart disease. Denies gross hematuria or dysuria. Vital signs are stable. General: No acute distress. HEENT: Head exam is unremarkable. LUNGS: No audible rhonchi or wheezes. HEART: Rate and Rhythm are regular. ABDOMEN: Nontender. EXTREMITITES: No edema. Past Medical History Past Medical History: GERD/Reflux, Hyperlipidemia, Thyroid Disorder Additional Past Medical History / Comment(s): IBS, heart murmur History of Any Multi-Drug Resistant Organisms: None Reported Past Surgical History: Orthopedic Surgery Additional Past Surgical History / Comment(s): L and R cataract removal, Left ankle ORIF Past Anesthesia/Blood Transfusion Reactions: Motion Sickness Past Psychological History: No Psychological Hx Reported Smoking Status: Never smoker Past Alcohol Use History: Rare Past Drug Use History: None Reported - Past Family History Father Family Medical History: CVA/TIA Mother Family Medical History: Cancer, CVA/TIA Additional Family Medical History / Comment(s): colon cancer. Medications and Allergies Home Medications Medication Instructions Recorded Confirmed Type Multivitamin [Multivitamins Adult 1 tab PO DAILY 07/19/23 07/19/23 History Gummies] Allergies Allergy/AdvReac Type Severity Reaction Status Date / Time banana Allergy Swelling Verified 07/19/23 20:13 latex Allergy Rash/Hives Verified 07/19/23 20:13 Penicillins Allergy Rash/Hives Verified 07/19/23 20:13 tree nut Allergy Swelling Verified 07/19/23 20:13 Physical Exam Vitals: Vital Signs Temp Pulse Resp BP Pulse Ox 07/20/23 05:00 87 19 107/57 95 07/20/23 04:00 76 17 102/49 94 L 07/20/23 02:00 58 L 16 98/47 94 L 07/19/23 21:01 99.4 F 97 18 116/58 94 L 07/19/23 18:48 100.8 F H 99 18 107/50 97 07/19/23 17:07 100.6 F H 110 H 18 128/68 97 Intake and Output 07/19/23 07/20/23 07/20/23 22:59 06:59 14:59 Output Total 650 Balance -650 Output: Urine 650 Other: Weight 102.058 kg Results - Lab Results Most recent lab results Calcium 7.9 mg/dL (8.4-10.2) L 07/20/23 08:27 Phosphorus 3.4 mg/dL (2.5-4.5) 07/20/23 08:27 Magnesium 1.9 mg/dL (1.6-2.3) 07/20/23 08:27 07/20/23 08:27 07/20/23 08:27 Assessment and Plan Plan: Assessment: 1. Rhabdomyolysis secondary to immobility and statin. CK levels trending down. GFR at baseline. UA revealed large blood and only 2 RBCs suggestive of myoglobinuria. 2. Acute COVID infection. Plan: Increase rate of normal saline to 150 mL an hour. Repeat labs including CK level in the morning. Continue to hold statin. Thank you for the consultation. I will continue to follow the patient with you during her hospital stay.
--- NOTE | 2023-07-20 14:07 | P.CRDCN ---
History of Present Illness Consult date: 07/20/23 History of present illness: HISTORY OF PRESENTING ILLNESS 78-year-old female with PMH of hyperlipidemia, irritable bowel syndrome. Patient reports that she has been having generalized weak since . She spent her [place] with her son was tested positive COVID-19. Yesterday patient was sitting in a chair when she felt significantly weak and slowly went down from the chair to the ground without hurting herself. She reports that she was very weak and could not get up. She also reported that she did not lose consciousness. She denies any chest pain chest pressure. On admission she was tested positive for COVID-19. She also had evidence of significant rhabdomyolysis with CPK measuring 18,000. She had mild elevation of troponin which was most likely can be explained by elevated CPK levels. She also had BRANDI Her EKG does not show any significant ST-T wave changes, sinus tachycardia and normal QTc Chest x-ray did not show any acute pulmonary congestion REVIEW OF SYSTEMS 14 point review of system is negative except what is mentioned above in HPI. PHYSICAL EXAMINATION Vital signs reviewed. Head: Normocephalic. Eyes: Sclerae nonicteric. Neck: Brisk carotid upstroke, no jugular venous distention. Lungs: Clear to auscultation. Heart: Regular rate and rhythm, S1-S2, no S3, no murmur or rub. Abdomen: Soft nontender, positive bowel sounds no organomegaly. Extremities: No edema, intact distal pulses. Neuro: Alert, oritented, no focal deficits ASSESSMENT COVID-19 pneumonia COVID-19 related generalized weakness and fall Rhabdomyolysis due to her long downtime Elevated troponin due to poor renal clearance and abnormalities as Mild transplant Obesity PLAN Elevation of troponin is less likely cardiac. Will not treat it as NSTEMI. It can be explained by rhabdomyolysis and poor renal clearance Obtain an echocardiogram. I reviewed the echocardiogram and it does not show any significant valvular abnormality and shows normal LV systolic function globally. Patient never lost consciousness. monitor on telemetry for next 24 hours sure there is no arrhythmias. If any arrythmia, notify cardiology. Patient is cleared from cardiac standpoint. These reconsult us in case of any questions. Cardiology team will sign off Past Medical History Past Medical History: GERD/Reflux, Hyperlipidemia, Thyroid Disorder Additional Past Medical History / Comment(s): IBS, heart murmur History of Any Multi-Drug Resistant Organisms: None Reported Past Surgical History: Orthopedic Surgery Additional Past Surgical History / Comment(s): L and R cataract removal, Left ankle ORIF Past Anesthesia/Blood Transfusion Reactions: Motion Sickness Past Psychological History: No Psychological Hx Reported Smoking Status: Never smoker Past Alcohol Use History: Rare Past Drug Use History: None Reported - Past Family History Father Family Medical History: CVA/TIA Mother Family Medical History: Cancer, CVA/TIA Additional Family Medical History / Comment(s): colon cancer. Medications and Allergies Home Medications Medication Instructions Recorded Confirmed Type Multivitamin [Multivitamins Adult 1 tab PO DAILY 07/19/23 07/19/23 History Gummies] Allergies Allergy/AdvReac Type Severity Reaction Status Date / Time banana Allergy Swelling Verified 07/19/23 20:13 latex Allergy Rash/Hives Verified 07/19/23 20:13 Penicillins Allergy Rash/Hives Verified 07/19/23 20:13 tree nut Allergy Swelling Verified 07/19/23 20:13 Physical Exam Vitals: Vital Signs Temp Pulse Resp BP Pulse Ox 07/20/23 11:50 100.5 F H 100 20 119/77 95 07/20/23 07:30 98.9 F 95 18 116/51 95 07/20/23 05:00 87 19 107/57 95 07/20/23 04:00 76 17 102/49 94 L 07/20/23 02:00 58 L 16 98/47 94 L 07/19/23 21:01 99.4 F 97 18 116/58 94 L 07/19/23 18:48 100.8 F H 99 18 107/50 97 07/19/23 17:07 100.6 F H 110 H 18 128/68 97 Intake and Output 07/19/23 07/20/23 07/20/23 22:59 06:59 14:59 Output Total 650 Balance -650 Output: Urine 650 Other: Weight 102.058 kg Results 07/20/23 08:27 07/20/23 08:27 Cardiac Enzymes 07/19/23 07/19/23 07/20/23 Range/Units 17:51 18:56 08:27 AST 375 H 356 H (14-36) U/L Lactate Dehydrogenase (120-246) U/L Troponin I 0.035 H* (0.000-0.034) ng/mL 07/20/23 Range/Units 08:27 AST (14-36) U/L Lactate Dehydrogenase 783 H (120-246) U/L Troponin I (0.000-0.034) ng/mL Coagulation 07/19/23 Range/Units 17:51 PT 12.4 (10.0-12.5) sec APTT 23.8 (22.0-30.0) sec CBC 07/19/23 07/20/23 Range/Units 17:51 08:27 WBC 8.2 5.1 (3.8-10.6) k/uL RBC 4.31 3.80 (3.80-5.40) m/uL Hgb 13.9 12.2 (11.4-16.0) gm/dL Hct 40.9 37.1 (34.0-46.0) % Plt Count 241 195 (150-450) k/uL Comprehensive Metabolic Panel 07/19/23 07/20/23 Range/Units 18:56 08:27 Sodium 136 L 139 (137-145) mmol/L Potassium 3.9 3.7 (3.5-5.1) mmol/L Chloride 103 110 H (98-107) mmol/L Carbon Dioxide 23 23 (22-30) mmol/L BUN 25 H 21 H (7-17) mg/dL Creatinine 0.73 0.70 (0.52-1.04) mg/dL Glucose 111 H 85 (74-99) mg/dL Calcium 8.5 7.9 L (8.4-10.2) mg/dL AST 375 H 356 H (14-36) U/L ALT 102 H 103 H (4-34) U/L Alkaline Phosphatase 56 52 (38-126) U/L Total Protein 6.1 L 5.4 L (6.3-8.2) g/dL Albumin 3.4 L 2.9 L (3.5-5.0) g/dL Current Medications Generic Name Dose Route Start Last Admin Trade Name Freq PRN Reason Stop Dose Admin Acetaminophen 325 mg 07/20/23 06:34 07/20/23 11:54 Acetaminophen Tab 325 Mg Tab PO 325 mg Q6HR PRN Administration Fever and/ or Pain Ascorbic Acid 1,000 mg 07/20/23 09:00 07/20/23 10:00 Ascorbic Acid 500 Mg Tab PO 1,000 mg DAILY GIACOMO Administration Cholecalciferol 50 mcg 07/20/23 09:00 07/20/23 10:00 Cholecalciferol 25 Mcg (1000 Iu) Tablet PO 50 mcg DAILY GIACOMO Administration Enoxaparin Sodium 30 mg 07/20/23 09:00 07/20/23 10:00 Enoxaparin 30 Mg/0.3 Ml Syringe SQ 30 mg DAILY GIACOMO Administration Famotidine 20 mg 07/20/23 09:00 07/20/23 10:00 Famotidine 20 Mg Tab PO 20 mg BID GIACOMO Administration Sodium Chloride 1,000 mls @ 150 mls/hr 07/20/23 10:00 07/20/23 09:56 Saline 0.9% IV 150 mls/hr .Q6H40M GIACOMO Administration Morphine Sulfate 4 mg 07/19/23 21:27 Morphine Sulfate 4 Mg/Ml Syringe IV Q4HR PRN Severe Pain (Scale 7 to 10) Naloxone HCl 0.2 mg 07/19/23 21:27 Naloxone 0.4 Mg/Ml 1 Ml Vial IV Q2M PRN Opioid Reversal Ondansetron HCl 4 mg 07/19/23 21:27 Ondansetron 4 Mg/2 Ml Vial IVP Q8HR PRN Nausea And Vomiting Zinc Sulfate 220 mg 07/20/23 09:00 07/20/23 10:00 Zinc Sulfate 220 Mg Cap PO 220 mg DAILY GIACOMO Administration Intake and Output 07/19/23 07/20/23 07/20/23 22:59 06:59 14:59 Output Total 650 Balance -650 Output: Urine 650 Other: Weight 102.058 kg 07/20/23 08:27 07/20/23 08:27
--- NOTE | 2023-07-20 19:07 | CA ---
Transthoracic Echo Report Name: Kayla Banks Age: 78 Gender: F : 1945 Exam Date: 07/20/2023 12:33 Exam Location: [facility] Ht (in): 64 Wt (lb): 225 Ordering Physician: Elijah Hamilton MD ([email or web address]) Attending/Referring Phys: Guest Relations Associate Landy Huerta, MARCK Procedure CPT: Indications: fall, dizziness Cardiac Hx: limited study Technical Quality: Fair Contrast 1: Total Dose (mL): Contrast 2: Total Dose (mL): MEASUREMENTS (Male / Female) Normal Values FINDINGS Left Ventricle Left ventricular ejection fraction is estimated at 55-60 %. Right Ventricle Hyperdynamic right ventricular global systolic function. Right Atrium Left Atrium Mitral Valve Structurally normal mitral valve. No mitral stenosis, regurgitation or prolapse. Aortic Valve Trileaflet aortic valve. Trace to mild aortic regurgitation. Tricuspid Valve Structurally normal tricuspid valve. No tricuspid stenosis, regurgitation or prolapse. Pulmonic Valve Pericardium No pericardial effusion. Aorta CONCLUSIONS Limited echo because patient is: Positive LVEF 55-60% No obvious regional wall motion abnormality No significant valvular disease No pericardial effusion. Previewed by: Dr Elijah Hamilton (Electronically Signed) Final Date: 20 July 2023 19:06
[2023-07-21] MEDS: LEVOTHYROXINE 100 MCG TAB PO SCH (06:19)
[2023-07-21] MEDS: SODIUM CHLORIDE 0.9% 1,000 ML IV SCH ×4 (07:24→17:31)
[2023-07-21] MEDS: ASCORBIC ACID 500 MG TAB PO SCH (08:40)
[2023-07-21] MEDS: ENOXAPARIN 40 MG/0.4 ML SYRINGE SQ SCH (08:40)
[2023-07-21] MEDS: ZINC SULFATE 220 MG CAP PO SCH (08:40)
[2023-07-21] MEDS: FAMOTIDINE 20 MG TAB PO SCH ×2 (08:40→20:37)
[2023-07-21] MEDS: CHOLECALCIFEROL 25 MCG (1000 IU) TABLET PO SCH (08:40)
[2023-07-21 09:08] LABS: Basophils # (A) 0.02 X 10*3/uL (0.00-0.10); Basophils % (A) 0.5 %; Eosinophils # (A) 0.01 X 10*3/uL (0.04-0.35); Eosinophils % (A) 0.2 %; HCT 33.4 % (37.2-46.3); HGB 10.9 g/dL (12.0-15.0); Lymphocytes # (A) 0.98 X 10*3/uL (0.90-5.00); MCH 30.9 pg (27.0-32.0); MCHC 32.6 g/dL (32.0-37.0); MCV 94.6 FL (80.0-97.0); Mean Platelet Volume 9.5 FL (9.5-12.2); Monocytes # (A) 0.39 X 10*3/uL (0.20-1.00); Monocytes % (A) 9.5 %; NRBC Per 100 WBC 0 X 10*3/uL (0.00-0.01); Neutrophils # (A) 2.68 X 10*3/uL (1.80-7.70); Neutrophils % (A) 65.6 %; Platelet Count 182 X 10*3/uL (140-440); RBC 3.53 X 10*6/uL (4.10-5.20); RDW 12.7 % (11.5-14.5); WBC 4.09 X 10*3/uL (4.50-10.00)
[2023-07-21 10:01] LABS: ALT 97 U/L (8-44); AST 279 U/L (13-35); Albumin/Globulin Ratio 1.58 Ratio (1.60-3.17); Alkaline Phosphatase 44 U/L (41-126); BUN/Creat Ratio 23.86 Ratio (12.00-20.00); Bilirubin, Conjugated <0.20 mg/dL (0.20-0.40); Bilirubin,Unconjugated >0.10 mg/dL (0.20-1.00); Blood Urea Nitrogen 16.7 mg/dL (9.0-27.0); Calcium 8.1 mg/dL (8.7-10.3); Carbon Dioxide 20.6 mmol/L (21.6-31.8); Chloride 112 mmol/L (96-109); Creatine Kinase 9462 U/L (26-186); Globulin 1.9 g/dL (1.6-3.3); Glucose 77 mg/dL (70-110); Potassium 3.8 mmol/L (3.5-5.5); Sodium 144 mmol/L (135-145); Total Bilirubin 0.3 mg/dL (0.3-1.2); Total Protein 4.9 g/dL (6.2-8.2)
--- NOTE | 2023-07-21 10:42 | P.PN ---
Subjective Patient is seen in follow-up for rhabdomyolysis. CK levels trending down. No gross hematuria. Nonoliguric. GFR at baseline. Oral intake fair. Vital signs are stable. General: No acute distress. HEENT: Head exam is unremarkable. LUNGS: No audible rhonchi or wheezes. HEART: Rate and Rhythm are regular. ABDOMEN: Nontender. EXTREMITITES: No edema. Objective - Vital Signs Vital signs: Vital Signs Temp 98.2 F 07/21/23 08:22 Pulse 88 07/21/23 08:22 Resp 19 07/21/23 08:22 BP 130/66 07/21/23 08:22 Pulse Ox 94 L 07/21/23 08:22 FiO2 Intake & Output 07/20/23 07/21/23 07/21/23 18:59 06:59 18:59 Output Total 500 Balance -500 Weight 92 kg Output: Urine 500 Other: Voiding Method Indwelling Catheter # Voids 2 - Labs CBC & Chem 7: 07/21/23 04:07 07/21/23 04:07 Labs: Abnormal Lab Results - Last 24 Hours (Table) 07/20/23 07/20/23 07/21/23 Range/Units 08:27 08:27 04:07 WBC 4.09 L (4.50-10.00) X 10*3/uL RBC 3.53 L (4.10-5.20) X 10*6/uL Hgb 10.9 L (12.0-15.0) g/dL Hct 33.4 L (37.2-46.3) % Eosinophils # 0.01 L (0.04-0.35) X 10*3/uL Chloride (96-109) mmol/L Carbon Dioxide (21.6-31.8) mmol/L BUN/Creatinine Ratio (12.00-20.00) Ratio Calcium (8.7-10.3) mg/dL Unconjugated Bilirubin (0.20-1.00) mg/dL AST (13-35) U/L ALT (8-44) U/L Creatine Kinase (26-186) U/L Total Protein (6.2-8.2) g/dL Albumin (3.8-4.9) g/dL Albumin/Globulin Ratio (1.60-3.17) Ratio Vitamin B12 174.0 L (200.0-944.0) pg/mL Procalcitonin 0.22 H (0.02-0.09) ng/mL 07/21/23 Range/Units 04:07 WBC (4.50-10.00) X 10*3/uL RBC (4.10-5.20) X 10*6/uL Hgb (12.0-15.0) g/dL Hct (37.2-46.3) % Eosinophils # (0.04-0.35) X 10*3/uL Chloride 112 H (96-109) mmol/L Carbon Dioxide 20.6 L (21.6-31.8) mmol/L BUN/Creatinine Ratio 23.86 H (12.00-20.00) Ratio Calcium 8.1 L (8.7-10.3) mg/dL Unconjugated Bilirubin >0.10 L (0.20-1.00) mg/dL AST 279 H (13-35) U/L ALT 97 H (8-44) U/L Creatine Kinase 9462 A* (26-186) U/L Total Protein 4.9 L (6.2-8.2) g/dL Albumin 3.0 L (3.8-4.9) g/dL Albumin/Globulin Ratio 1.58 L (1.60-3.17) Ratio Vitamin B12 (200.0-944.0) pg/mL Procalcitonin (0.02-0.09) ng/mL Assessment and Plan Plan: Assessment: 1. Rhabdomyolysis secondary to immobility and statin. CK levels trending down. GFR at baseline. UA revealed large blood and only 2 RBCs suggestive of myoglobinuria. 2. Acute COVID infection. 3. Metabolic acidosis secondary to IV fluids. Plan: Maintain normal saline for 1 more day. Repeat labs including CK level in the morning. Continue to hold statin. DC Garza catheter. Add oral bicarbonate
[2023-07-21] MEDS: SODIUM BICARBONATE TAB 650 MG TAB PO SCH ×2 (11:36→20:37)
--- NOTE | 2023-07-21 21:21 | P.PN ---
Subjective This is a pleasant 78 years old female with past medical history of hyperlipidemia, irritable bowel syndrome that she follows up with Dr. Torres She presents with generalized weakness and fall at home, patient spent her [place] with her son who has Covid, after that she started to have low appetite and generalized weakness, she is also having some dry cough and occasional phlegm but no dyspnea or chest pain, no diarrhea vomiting or abdominal pain and no urinary symptoms. No headache dizziness weakness or numbness however night she fell on the floor without losing consciousness and she felt so weak she could not get up so she stayed on the floor tomorrow morning also she could not get up and evaluated to her family start checking on her and the daughter about 2-3 pm, they noticed her over the window moving so they called ems who brought into the house and brought her to the hospital. Currently lying in bed feels generally weak but denies any other specific complaints Patient denies smoking alcohol or illicit drugs Hemodynamically stable, she had low-grade fever of 100.8, blood pressure on the low side 107/57 Labs checked she has unremarkable CBC, WBC is 8.2, INR is unremarkable, BMP is unremarkable Liver enzymes elevated AST 375 and ALT 102. Creatinine kinase is elevated to 4936 Troponin is elevated 0.035 Covid test came back positive Urine analysis looks concentrated sample EKG sinus tachycardia and [address]-T changes and QTC 382 Chest x-ray showed no acute process Pelvic x-ray showed no acute fracture but bilateral hip osteoarthrosis Patient states that she feels fine other than generally weak since she wants to go home. Patient was started on normal saline 1:30 milliliters per hour and also she received 2.5 L in the emergency room. 07/21/2023 Rhabdomyolysis is improving and continue with IV fluids 1 more day Troponin is noncardiac and patient care technician instructor signed off Repeat labs in the morning Patient very weak and might need PT/OT evaluation unless she improves by tomorrow Discussed with the patient at bedside and she agrees with the plan Objective - Vital Signs Vital signs: Vital Signs Temp 98.5 F 07/21/23 14:27 Pulse 85 07/21/23 14:27 Resp 19 07/21/23 14:27 BP 134/73 07/21/23 14:27 Pulse Ox 96 07/21/23 14:27 FiO2 Intake & Output 07/20/23 07/21/23 07/21/23 18:59 06:59 18:59 Output Total 500 700 Balance -500 -700 Weight 92 kg Output: Urine 500 700 Other: Voiding Method Indwelling Catheter Indwelling Catheter # Voids 2 - Exam -GENERAL: The patient is alert and oriented x3, not in any acute distress. Eyes weakness HEENT: Pupils are round and equally reacting to light. EOMI. No scleral icterus. No conjunctival pallor. Normocephalic, atraumatic. No pharyngeal erythema. No thyromegaly. CARDIOVASCULAR: S1 and S2 present. No murmurs, rubs, or gallops. PULMONARY: Chest is clear to auscultation, no wheezing , no crackles. ABDOMEN: Soft, nontender, nondistended, normoactive bowel sounds. No palpable organomegaly. MUSCULOSKELETAL: No joint swelling or deformity. EXTREMITIES: No cyanosis, clubbing, or pedal edema. NEUROLOGICAL: Gross neurological examination did not reveal any focal deficits. SKIN: No rashes. no petechiae. - Labs CBC & Chem 7: 07/21/23 04:07 07/21/23 04:07 Labs: Abnormal Lab Results - Last 24 Hours (Table) 07/20/23 07/21/23 07/21/23 Range/Units 08:27 04:07 04:07 WBC 4.09 L (4.50-10.00) X 10*3/uL RBC 3.53 L (4.10-5.20) X 10*6/uL Hgb 10.9 L (12.0-15.0) g/dL Hct 33.4 L (37.2-46.3) % Eosinophils # 0.01 L (0.04-0.35) X 10*3/uL Chloride 112 H (96-109) mmol/L Carbon Dioxide 20.6 L (21.6-31.8) mmol/L BUN/Creatinine Ratio 23.86 H (12.00-20.00) Ratio Calcium 8.1 L (8.7-10.3) mg/dL Unconjugated Bilirubin >0.10 L (0.20-1.00) mg/dL AST 279 H (13-35) U/L ALT 97 H (8-44) U/L Creatine Kinase 9462 A* (26-186) U/L Total Protein 4.9 L (6.2-8.2) g/dL Albumin 3.0 L (3.8-4.9) g/dL Albumin/Globulin Ratio 1.58 L (1.60-3.17) Ratio Vitamin B12 174.0 L (200.0-944.0) pg/mL Assessment and Plan Assessment: Acute Covid infection without pneumonia or hypoxia Generalized weakness secondary to above with fall at home without syncope Rhabdomyolysis Elevated troponin most likely secondary to her systemic illness, noncardiac and patient care technician instructor signed off Mild transaminitis Obesity with BMI of 38.6 Plan: No need for steroids or remdesivir Continue with vitamin C, D and zinc check TSH and vitamin B12 and check inflammatory markers Continue with IV hydration Monitor creatinine Cardiology and nephrology consult Labs and medication were reviewed.. Continue same treatment. Continue with s ymptomatic treatment. Resume home medication. Monitor labs and vitals. DVT and GI prophylaxis. Further recommendations as per clinical course of the patient DVT prophylaxis: Subcutaneous Lovenox GI Prophylaxis: Pepcid PT/OT: Pending Prognosis is guarded
[2023-07-22] MEDS: LEVOTHYROXINE 100 MCG TAB PO SCH (05:35)
[2023-07-22] MEDS: SODIUM BICARBONATE TAB 650 MG TAB PO SCH ×2 (09:00→20:40)
[2023-07-22] MEDS: ENOXAPARIN 40 MG/0.4 ML SYRINGE SQ SCH (09:00)
[2023-07-22] MEDS: ASCORBIC ACID 500 MG TAB PO SCH (09:00)
[2023-07-22] MEDS: ZINC SULFATE 220 MG CAP PO SCH (09:00)
[2023-07-22] MEDS: FAMOTIDINE 20 MG TAB PO SCH ×2 (09:00→20:40)
[2023-07-22] MEDS: CHOLECALCIFEROL 25 MCG (1000 IU) TABLET PO SCH (09:00)
[2023-07-22 09:41] LABS: HCT 33.4 % (34.0-46.0); HGB 11.2 gm/dL (11.4-16.0); MCH 32.2 pg (25.0-35.0); MCHC 33.6 g/dL (31.0-37.0); MCV 95.7 fL (80.0-100.0); Mean Platelet Volume 9.8; Platelet Count 190 k/uL (150-450); RBC 3.49 m/uL (3.80-5.40); RDW 12.9 % (11.5-15.5)
[2023-07-22 10:52] LABS: Blood Urea Nitrogen 12.6 mg/dL (9.0-27.0); Carbon Dioxide 23.2 mmol/L (21.6-31.8); Chloride 110 mmol/L (96-109); Glucose 92 mg/dL (70-110); Magnesium 1.8 mg/dL (1.5-2.4); Potassium 3.7 mmol/L (3.5-5.5); Sodium 143 mmol/L (135-145)
[2023-07-22] MEDS ORDERED: POTASSIUM CHLORIDE ER 20 MEQ TAB.ER PO STA (10:57)
--- NOTE | 2023-07-22 10:57 | P.PN ---
Subjective Patient is seen in follow-up for rhabdomyolysis. CK levels trending down. No gross hematuria. Nonoliguric. GFR at baseline. Oral intake fair. Overall feels better today. Vital signs are stable. General: No acute distress. HEENT: Head exam is unremarkable. LUNGS: No audible rhonchi or wheezes. HEART: Rate and Rhythm are regular. ABDOMEN: Nontender. EXTREMITITES: No edema. Objective - Vital Signs Vital signs: Vital Signs Temp 98.2 F 07/22/23 07:06 Pulse 75 07/22/23 07:06 Resp 19 07/22/23 07:06 BP 132/61 07/22/23 07:06 Pulse Ox 98 07/22/23 07:06 FiO2 Intake & Output 07/21/23 07/22/23 07/22/23 18:59 06:59 18:59 Output Total 700 200 Balance -700 -200 Weight 99.2 kg Output: Urine 700 200 Other: Voiding Method Indwelling Catheter Toilet # Voids 1 - Labs CBC & Chem 7: 07/22/23 03:45 07/22/23 03:45 Labs: Abnormal Lab Results - Last 24 Hours (Table) 07/22/23 07/22/23 Range/Units 03:45 03:45 WBC 3.0 L (3.8-10.6) k/uL RBC 3.49 L (3.80-5.40) m/uL Hgb 11.2 L (11.4-16.0) gm/dL Hct 33.4 L (34.0-46.0) % Chloride 110 H (96-109) mmol/L Calcium 8.0 L (8.7-10.3) mg/dL Assessment and Plan Plan: Assessment: 1. Rhabdomyolysis secondary to immobility and statin. CK levels trending down. GFR at baseline. UA revealed large blood and only 2 RBCs suggestive of myoglobinuria. 2. Acute COVID infection. 3. Metabolic acidosis secondary to IV fluids. Improved. On oral bicarbonate. Plan: Decrease rate of normal saline to 100 mL an hour. Continue to hold statin. Encouraged oral intake.
[2023-07-22 11:09] LABS: Creatine Kinase 6763 U/L (26-186)
[2023-07-22] MEDS: SODIUM CHLORIDE 0.9% 1,000 ML IV SCH ×2 (11:49→20:45)
--- NOTE | 2023-07-22 20:11 | P.PN ---
Subjective This is a pleasant 78 years old female with past medical history of hyperlipidemia, irritable bowel syndrome that she follows up with Dr. Torres She presents with generalized weakness and fall at home, patient spent her [place] with her son who has Covid, after that she started to have low appetite and generalized weakness, she is also having some dry cough and occasional phlegm but no dyspnea or chest pain, no diarrhea vomiting or abdominal pain and no urinary symptoms. No headache dizziness weakness or numbness however night she fell on the floor without losing consciousness and she felt so weak she could not get up so she stayed on the floor tomorrow morning also she could not get up and evaluated to her family start checking on her and the daughter about 2-3 pm, they noticed her over the window moving so they called ems who brought into the house and brought her to the hospital. Currently lying in bed feels generally weak but denies any other specific complaints Patient denies smoking alcohol or illicit drugs Hemodynamically stable, she had low-grade fever of 100.8, blood pressure on the low side 107/57 Labs checked she has unremarkable CBC, WBC is 8.2, INR is unremarkable, BMP is unremarkable Liver enzymes elevated AST 375 and ALT 102. Creatinine kinase is elevated to 4936 Troponin is elevated 0.035 Covid test came back positive Urine analysis looks concentrated sample EKG sinus tachycardia and [address]-T changes and QTC 382 Chest x-ray showed no acute process Pelvic x-ray showed no acute fracture but bilateral hip osteoarthrosis Patient states that she feels fine other than generally weak since she wants to go home. Patient was started on normal saline 1:30 milliliters per hour and also she received 2.5 L in the emergency room. 07/21/2023 Rhabdomyolysis is improving and continue with IV fluids 1 more day Troponin is noncardiac and clinical trials assistant signed off Repeat labs in the morning Patient very weak and might need PT/OT evaluation unless she improves by tomorrow Discussed with the patient at bedside and she agrees with the plan 07/22/2023 Blood pressure improved with systolic 120-140, diastolic 60-80 Remains on normal saline lower tray 200 mL per hour Keep monitoring creatinine kinase which is trending down, monitor LFTs. Possible discharge in 24-48 hours Objective - Vital Signs Vital signs: Vital Signs Temp 98.2 F 07/22/23 07:06 Pulse 75 07/22/23 07:06 Resp 19 07/22/23 07:06 BP 132/61 07/22/23 07:06 Pulse Ox 98 07/22/23 07:06 FiO2 Intake & Output 07/21/23 07/22/23 07/22/23 18:59 06:59 18:59 Output Total 700 200 Balance -700 -200 Weight 99.2 kg Output: Urine 700 200 Other: Voiding Method Indwelling Catheter Toilet # Voids 1 - Exam -GENERAL: The patient is alert and oriented x3, not in any acute distress. Eyes weakness HEENT: Pupils are round and equally reacting to light. EOMI. No scleral icterus. No conjunctival pallor. Normocephalic, atraumatic. No pharyngeal erythema. No thyromegaly. CARDIOVASCULAR: S1 and S2 present. No murmurs, rubs, or gallops. PULMONARY: Chest is clear to auscultation, no wheezing , no crackles. ABDOMEN: Soft, nontender, nondistended, normoactive bowel sounds. No palpable organomegaly. MUSCULOSKELETAL: No joint swelling or deformity. EXTREMITIES: No cyanosis, clubbing, or pedal edema. NEUROLOGICAL: Gross neurological examination did not reveal any focal deficits. SKIN: No rashes. no petechiae. - Labs CBC & Chem 7: 07/22/23 03:45 07/22/23 03:45 Labs: Abnormal Lab Results - Last 24 Hours (Table) 07/22/23 Range/Units 03:45 WBC 3.0 L (3.8-10.6) k/uL RBC 3.49 L (3.80-5.40) m/uL Hgb 11.2 L (11.4-16.0) gm/dL Hct 33.4 L (34.0-46.0) % Assessment and Plan Assessment: Acute Covid infection without pneumonia or hypoxia Generalized weakness secondary to above with fall at home without syncope Rhabdomyolysis Elevated troponin most likely secondary to her systemic illness, noncardiac and clinical trials assistant signed off Mild transaminitis Obesity with BMI of 38.6 Plan: No need for steroids or remdesivir Continue with vitamin C, D and zinc check TSH and vitamin B12 and check inflammatory markers Continue with IV hydration Monitor creatinine Cardiology and nephrology consult Labs and medication were reviewed.. Continue same treatment. Continue with symptomatic treatment. Resume home medication. Monitor labs and vitals. DVT and GI prophylaxis. Further recommendations as per clinical course of the patient DVT prophylaxis: Subcutaneous Lovenox GI Prophylaxis: Pepcid PT/OT: Pending Prognosis is guarded
[2023-07-23] MEDS: LEVOTHYROXINE 100 MCG TAB PO SCH (05:33)
[2023-07-23] MEDS: SODIUM CHLORIDE 0.9% 1,000 ML IV SCH (06:48)
[2023-07-23] MEDS: SODIUM BICARBONATE TAB 650 MG TAB PO SCH ×2 (08:40→20:44)
[2023-07-23] MEDS: ZINC SULFATE 220 MG CAP PO SCH (08:41)
[2023-07-23] MEDS: ENOXAPARIN 40 MG/0.4 ML SYRINGE SQ SCH (08:41)
[2023-07-23] MEDS: CHOLECALCIFEROL 25 MCG (1000 IU) TABLET PO SCH (08:41)
[2023-07-23] MEDS: ASCORBIC ACID 500 MG TAB PO SCH (08:41)
[2023-07-23] MEDS: FAMOTIDINE 20 MG TAB PO SCH ×2 (08:41→20:44)
[2023-07-23 08:59] LABS: Magnesium 1.8 mg/dL (1.5-2.4)
[2023-07-23 09:13] LABS: ALT 86 U/L (8-44); AST 163 U/L (13-35); Albumin 2.9 g/dL (3.8-4.9); Albumin/Globulin Ratio 1.61 Ratio (1.60-3.17); Alkaline Phosphatase 41 U/L (41-126); Bilirubin, Conjugated <0.20 mg/dL (0.20-0.40); Bilirubin,Unconjugated >0.10 mg/dL (0.20-1.00); Blood Urea Nitrogen 9.8 mg/dL (9.0-27.0); Calcium 7.8 mg/dL (8.7-10.3); Carbon Dioxide 24.5 mmol/L (21.6-31.8); Chloride 112 mmol/L (96-109); Creatine Kinase 3857 U/L (26-186); Globulin 1.8 g/dL (1.6-3.3); Glucose 96 mg/dL (70-110); Potassium 3.5 mmol/L (3.5-5.5); Sodium 146 mmol/L (135-145); Total Bilirubin 0.3 mg/dL (0.3-1.2); Total Protein 4.7 g/dL (6.2-8.2)
[2023-07-23] MEDS ORDERED: POTASSIUM CHLORIDE ER 20 MEQ TAB.ER PO STA (10:48)
--- NOTE | 2023-07-23 10:48 | P.PN ---
Subjective Patient is seen in follow-up for rhabdomyolysis. CK levels trending down. No gross hematuria. Nonoliguric. GFR at baseline. Oral intake fair. Overall feels better today. Working with physical therapy. Daughter present at bedside. Vital signs are stable. General: No acute distress. HEENT: Head exam is unremarkable. LUNGS: No audible rhonchi or wheezes. HEART: Rate and Rhythm are regular. ABDOMEN: Nontender. EXTREMITITES: No edema. Objective - Vital Signs Vital signs: Vital Signs Temp 98.6 F 07/23/23 07:00 Pulse 78 07/23/23 07:00 Resp 19 07/23/23 07:00 BP 133/77 07/23/23 07:00 Pulse Ox 99 07/23/23 07:00 FiO2 Intake & Output 07/22/23 07/23/23 07/23/23 18:59 06:59 18:59 Weight 98.3 kg Other: Voiding Method Toilet # Voids 1 2 - Labs CBC & Chem 7: 07/22/23 03:45 07/23/23 04:26 Labs: Abnormal Lab Results - Last 24 Hours (Table) 07/22/23 07/22/23 07/23/23 Range/Units 03:45 03:45 04:26 Sodium 146 H (135-145) mmol/L Chloride 110 H 112 H (96-109) mmol/L Calcium 8.0 L 7.8 L (8.7-10.3) mg/dL Unconjugated Bilirubin >0.10 L (0.20-1.00) mg/dL AST 163 H (13-35) U/L ALT 86 H (8-44) U/L Creatine Kinase 6763 A* 3857 A* (26-186) U/L Total Protein 4.7 L (6.2-8.2) g/dL Albumin 2.9 L (3.8-4.9) g/dL Procalcitonin 0.11 H (0.02-0.09) ng/mL Assessment and Plan Plan: Assessment: 1. Rhabdomyolysis secondary to immobility and statin. CK levels trending down. GFR at baseline. UA revealed large blood and only 2 RBCs suggestive of myoglobinuria. 2. Acute COVID infection. 3. Metabolic acidosis secondary to IV fluids. Improved. On oral bicarbonate. Better. 4. Mild hypernatremia from lack of water intake. Plan: Change IV fluids to half-normal saline to be run at 125 mL an hour. Continue to hold statin. Encouraged oral intake. Possible discharge tomorrow. Case discussed with primary team.
[2023-07-23] MEDS: SODIUM CHLORIDE 0.45% 1,000 ML IV SCH ×2 (11:36→20:49)
[2023-07-23 20:38] VITALS: RESP 18
[2023-07-24] MEDS: SODIUM CHLORIDE 0.45% 1,000 ML IV SCH ×2 (05:32→12:13)
[2023-07-24] MEDS: LEVOTHYROXINE 100 MCG TAB PO SCH (06:07)
[2023-07-24] MEDS: SODIUM BICARBONATE TAB 650 MG TAB PO SCH (08:29)
[2023-07-24] MEDS: ENOXAPARIN 40 MG/0.4 ML SYRINGE SQ SCH (08:29)
[2023-07-24] MEDS: ZINC SULFATE 220 MG CAP PO SCH (08:29)
[2023-07-24] MEDS: CHOLECALCIFEROL 25 MCG (1000 IU) TABLET PO SCH (08:29)
[2023-07-24] MEDS: ASCORBIC ACID 500 MG TAB PO SCH (08:29)
[2023-07-24] MEDS: FAMOTIDINE 20 MG TAB PO SCH (08:29)
[2023-07-24 08:30] VITALS: BP 144/67; PULSE 86; TEMP 98.2
[2023-07-24 09:36] LABS: BUN/Creat Ratio 15.71 Ratio (12.00-20.00); Calcium 8.1 mg/dL (8.7-10.3); Carbon Dioxide 23.9 mmol/L (21.6-31.8); Chloride 110 mmol/L (96-109); Glucose 93 mg/dL (70-110); Potassium 3.8 mmol/L (3.5-5.5); Sodium 143 mmol/L (135-145)
[2023-07-24 09:55] LABS: Creatine Kinase 2413 U/L (26-186)
--- NOTE | 2023-07-24 10:18 | P.PN ---
Subjective Patient is seen in follow-up for rhabdomyolysis. CK levels trending down. No gross hematuria. Nonoliguric. GFR at baseline. Oral intake fair. Overall feels better today. Son present at bedside. Wants to go home today. Vital signs are stable. General: No acute distress. HEENT: Head exam is unremarkable. LUNGS: No audible rhonchi or wheezes. HEART: Rate and Rhythm are regular. ABDOMEN: Nontender. EXTREMITITES: No edema. Objective - Vital Signs Vital signs: Vital Signs Temp 98.2 F 07/24/23 07:30 Pulse 86 07/24/23 07:30 Resp 18 07/24/23 07:30 BP 144/67 07/24/23 07:30 Pulse Ox 96 07/24/23 07:30 FiO2 Intake & Output 07/23/23 07/24/23 07/24/23 18:59 06:59 18:59 Intake Total 118 Balance 118 Weight 97 kg Intake: Oral 118 Other: # Voids 2 4 1 # Bowel Movements 1 - Labs CBC & Chem 7: 07/22/23 03:45 07/24/23 03:38 Labs: Abnormal Lab Results - Last 24 Hours (Table) 07/24/23 Range/Units 03:38 Chloride 110 H (96-109) mmol/L Calcium 8.1 L (8.7-10.3) mg/dL Creatine Kinase 2413 A* (26-186) U/L Assessment and Plan Plan: Assessment: 1. Rhabdomyolysis secondary to immobility and statin. CK levels trending down. GFR at baseline. UA revealed large blood and only 2 RBCs suggestive of myoglobinuria. 2. Acute COVID infection. 3. Metabolic acidosis secondary to IV fluids. Improved. On oral bicarbonate. Better. 4. Mild hypernatremia from lack of water intake. Improved with hypotonic fluid infusion. Plan: Maintain half-normal saline. Continue to hold statin until rhabdo completely resolves. Encouraged oral intake. Possible discharge today. Follow up outpatient 1-2 weeks post discharge.
--- NOTE | 2023-07-30 20:18 | CDI ---
Documentation Clarification Form Date: 07/30/2023 From: Capri Pierce Admit Date: 07/19/2023 09:28:00 PM Patient Name: Kayla Banks Visit Number: [id number] Discharge Date: 07/24/2023 01:20:00 PM ATTENTION: The Clinical Documentation Specialists (CDI) and [facility] Coding Staff appreciate your assistance in clarifying documentation. Please respond to the clarification below the line at the bottom and electronically sign. The CDI & [facility] Coding staff will review the response and follow-up if needed. Please note: Queries are made part of the Legal Health Record. If you have any questions, please contact the author of this message via ITS. Dr. Cifuentes E Sheet The patient has tachycardia, fever, malaise, and weakness. Based on this information and the findings below, is there an additional diagnosis that is clinically appropriate for this patient? History/Risk Factors: 78yo presented with Covid pneumonia, rhabdo, and acute renal failure. Pt was found down by her family at home. She had fallen the day before and was too weak to stand up. Clinical Indicators: H&P noted the patient had generalized weakness secondary to acute Covid infection with fall at home and elevated troponin most likely secondary to her systemic illness WBC: 07/19 8.2, 07/20 5.1, 07/21 4.09, 07/22 3.0 Lactic acid 07/19: 1.4 CRP 07/20: 14.3 CK: 07/19 63161, 07/20 26030, 07/21 9462 Trop 07/19: 0.035 Vitals signs: 07/19 temp 100.5, HR 110 07/20 temp 100.5, HR 100 Treatment: IV fluid, vit C po, Zinc po, vit D po, Ceftriaxone IV Is there an additional diagnosis that is clinically appropriate for this patient? [ x ] Sepsis, present on admission [ ] No systemic response to Covid [ ] Other, please specify [ ] Unable to determine SIRS Criteria: 2 or more of the following may indicate SIRS Temperature < 96.8F (36C) or > 101.0F (38.3C) Heart Rate > 90 bpm Respiratory Rate > 20 breaths/min or PaCO2 < 32 mmHg White Blood Cell Count > 12,000 or < 4,000 cells/mm3 or > 10% bands (Template Last Reviewed: July 2022) pt has fever and tachycardia , so diagnosed with sepsis, resolved upon discharge MTDD
== END 2023-07-24 13:20 | disposition home health service (06) | DRG 871 ==
LOC: EC 17:05 → 3SCARD 21:28 → 4SSUR 07-20 16:46
PROVIDERS: ADMIT Hospitalist; ATTEND Hospitalist
DX: A41.89 Other specified sepsis (principal); J12.82 Pneumonia due to coronavirus disease 2019; U07.1 COVID-19; E87.0 Hyperosmolality and hypernatremia; E87.20 Acidosis, unspecified; M62.82 Rhabdomyolysis; N17.9 Acute kidney failure, unspecified; Z88.0 Allergy status to penicillin; Z91.040 Latex allergy status; Z91.018 Allergy to other foods; K58.9 Irritable bowel syndrome, unspecified; W01.0XXA Fall on same level from slipping, tripping and stumbling without subsequent striking against object, initial encounter; E66.9 Obesity, unspecified; Z68.38 Body mass index [BMI] 38.0-38.9, adult; K21.9 Gastro-esophageal reflux disease without esophagitis; I35.1 Nonrheumatic aortic (valve) insufficiency; T46.6X5A Adverse effect of antihyperlipidemic and antiarteriosclerotic drugs, initial encounter; R74.01 Elevation of levels of liver transaminase levels; R79.89 Other specified abnormal findings of blood chemistry; R53.1 Weakness; E78.5 Hyperlipidemia, unspecified; R00.0 Tachycardia, unspecified; M16.0 Bilateral primary osteoarthritis of hip; Y92.009 Unspecified place in unspecified non-institutional (private) residence as the place of occurrence of the external cause; Z79.890 Hormone replacement therapy; Z98.41 Cataract extraction status, right eye; Z98.42 Cataract extraction status, left eye; X58.XXXA Exposure to other specified factors, initial encounter
CPT/HCPCS: 36415; 71045; 72170; 80048; 80053; 80076; 81001; 82550; 82607; 82746; 83605; 83615; 83735; 83880; 84100; 84145; 84443; 84484; 85025; 85027; 85610; 85730; 86140; 87636; 93005; 93306; 96361; 96365; 96372; 99285